=== PATIENT | female | born 1965 | race American Indian/Alaskan Native ===

== ENCOUNTER 2016-05-09 08:29 | Emergency (ER) | payer OTHER ==
[2016-05-09 09:07] VITALS: BP 170/110
[2016-05-09] MEDS ORDERED: MOTRIN PO ONE (10:29)
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
== END 2016-05-09 12:25 | disposition home or self-care (01) ==
LOC: ED 08:29
DX: M25.572 Pain in left ankle and joints of left foot (principal); M25.562 Pain in left knee; M25.512 Pain in left shoulder; M25.522 Pain in left elbow; M79.642 Pain in left hand; I10 Essential (primary) hypertension; V49.49XA Driver injured in collision with other motor vehicles in traffic accident, initial encounter; X58.XXXA Exposure to other specified factors, initial encounter; Y93.9 Activity, unspecified; Y92.9 Unspecified place or not applicable; Y99.9 Unspecified external cause status
CPT/HCPCS: 99284